=== PATIENT | female | born 1955 | race Caucasian/White ===

== ENCOUNTER → 2017-03-10 | Outpatient (CLI) | payer BC ==
[~2017-03-10] MED LIST: BUPR150T7 PO; CALCTAB7 PO; FISHOIL PO; LMC/150 PO
--- NOTE | 2017-03-10 11:35 | DIAGNOSTIC IMAGING REPORT ---
SOFT TISS HEAD/NECK-THYROID CLINICAL HISTORY: 61 years-old Female with E04.1,E03.9. Thyroid nodule. COMPARISON: None available TECHNIQUE: Multiple real time sonographic images of the thyroid were obtained accessing chapin scale appearance and color doppler flow. FINDINGS: MEASUREMENTS: Right lobe: 5.1 x 1.4 x 2.1 cm Left lobe: 4.9 x 1.2 x 1.3 cm Isthmus: 0.3 cm PARENCHYMA: The thyroid parenchymal echotexture is generally homogeneous. NODULES: There is a questioned ovoid isoechoic wider than tall 0.4 cm nodule of the lower pole right thyroid. Additionally, there is a cystic lesion of the superior left thyroid lobe containing a central echogenicity suggesting colloid, 0.4 cm. IMPRESSION: Subcentimeter nodules of the bilateral thyroid are noted without suspicious nodules identified. 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 The above report was generated using voice recognition software. It may contain grammatical, syntax or spelling errors. Electronically signed by: Jose Garcia M.D. 03/10/2017 11:34 AM Dictated Date/Time: 03/10/2017 11:30 AM
== END | disposition home or self-care (01) ==
LOC: C.ULTR 11:04
PROVIDERS: ATTEND Nurse Practitioner Family
DX: E04.1 Nontoxic single thyroid nodule (principal); E03.9 Hypothyroidism, unspecified